=== PATIENT | female | born 1970 | race Caucasian/White ===

== ENCOUNTER → 2017-12-26 | Outpatient (CLI) | payer BC ==
[~2017-12-26] MED LIST: B COMPLETE1 EACH PO; CELEXA40 MG PO; CORTIZONE-10 PL57 GM TP; KLONOPIN0.25 M1 PO; MEDROL DOSEPAK4 MG; MULTI-DAY VITA1 EACH PO; PULMICORT180 MICROG IH; SINGULAIR10 MG PO; WELLBUTRIN75 MG PO
== END | disposition home or self-care (01) ==
LOC: CDC 15:06
DX: M25.532 Pain in left wrist (principal); M18.12 Unilateral primary osteoarthritis of first carpometacarpal joint, left hand; M79.641 Pain in right hand
CPT/HCPCS: 93000